=== PATIENT | female | born 1940 | race Caucasian/White ===

== ENCOUNTER 2018-05-29 09:06 | Emergency (ER) | payer MEDICARE, OTHER ==
[~2018-05-29] VITALS: Wt 79.4 kg
[~2018-05-29 09:06] MED LIST: AMERIGEL; ASPIRIN81 M1 PO; KEFLEX500 MG PO; VICODIN 5/500 505 MG PO
[2018-05-29 09:51] LABS: BASO % 0.3 % (0.0-1.0); EOS # 0.2 10*3/uL (0.0-0.4); EOS % 2.3 % (1.0-4.0); HEMATOCRIT 43.1 % (37.0-47.0); HEMOGLOBIN 14.3 g/dl (12.0-16.0); LYMPH # 3.9 10*3/uL (1.3-4.4); LYMPH % 37.2 % (27.0-41.0); MEAN CELL VOLUME 95.6 fl (81.0-99.0); MEAN CORPUSCULAR HGB 31.7 pg (27.0-31.0); MEAN CORPUSCULAR HGB CONC 33.2 g/dl (33.0-37.0); MONO # 0.9 10*3/uL (0.1-1.0); MONO % 8.5 % (3.0-9.0); NEUT # 5.3 10*3/uL (2.3-7.9); NEUT % 50.3 % (47.0-73.0); PLATELET COUNT AUTOMATED 313 10*3/uL (130-400); RED BLOOD COUNT 4.51 10*6/uL (4.10-5.10); RED CELL DISTRI WIDTH 14.4 % (0-14.5); WHITE BLOOD COUNT 10.5 10*3/uL (4.8-10.8)
[2018-05-29 10:58] LABS: ACT PARTIAL THROMBO TIME 21.4 SECONDS (20.8-31.5)
[2018-05-29 11:05] LABS: ALBUMIN 3.9 gm/dl (3.1-4.5); ALKALINE PHOSPHATASE 69 U/L (45-117); BUN 17 mg/dl (7-24); CHLORIDE 100 mmol/L (98-107); LIPASE 138 U/L (73-393); SGPT/ALT 63 U/L (12-78); SODIUM 137 mmol/L (136-145); TOTAL PROTEIN 7.5 gm/dL (6.4-8.2)
[2018-05-29 11:08] LABS: SGOT/AST 34 IU/L (3-35)
[2018-05-29] MEDS ORDERED: NORCO 5-325 TA1 EACH PO (11:59)
[2018-05-29] MEDS ORDERED: ASPIRIN81 M1 PO (12:00)
[2018-05-29] MEDS ORDERED: PROBIOTIC BLEN1 EAC1 PO (12:00)
[2018-05-29] MEDS ORDERED: IRON325 M1 PO (12:00)
== END 2018-05-29 14:41 | disposition short-term general hospital (02) ==
LOC: ED 09:06
PROVIDERS: Physician Assistant
DX: I77.89 Other specified disorders of arteries and arterioles (principal); Z79.82 Long term (current) use of aspirin; Z79.899 Other long term (current) drug therapy; Z86.718 Personal history of other venous thrombosis and embolism

== ENCOUNTER 2018-11-05 19:06 | Emergency (ER) | payer MEDICARE, OTHER ==
[~2018-11-05] VITALS: Ht 160 cm; Wt 77.1 kg
[~2018-11-05 19:06] MED LIST changes: +IRON325 M1 PO; +NORCO 5-325 TA1 EACH PO; +PROBIOTIC BLEN1 EAC1 PO
[2018-11-05 19:38] VITALS: BP 148/64
[2018-11-05] MEDS ORDERED: KEFLEX500 M1 PO (20:51)
== END 2018-11-05 20:47 | disposition home or self-care (01) ==
LOC: ED 19:06
DX: L03.116 Cellulitis of left lower limb (principal); I86.8 Varicose veins of other specified sites; I78.1 Nevus, non-neoplastic

== ENCOUNTER → 2018-11-06 | Outpatient (CLI) | payer MEDICARE, OTHER ==
[~2018-11-06] MED LIST changes: +KEFLEX500 M1 PO
== END ==
LOC: WOUNDCARE 10:25
DX: I87.312 Chronic venous hypertension (idiopathic) with ulcer of left lower extremity (principal); L97.321 Non-pressure chronic ulcer of left ankle limited to breakdown of skin; S81.812A Laceration without foreign body, left lower leg, initial encounter; I73.9 Peripheral vascular disease, unspecified; Z90.49 Acquired absence of other specified parts of digestive tract

== ENCOUNTER → 2018-11-13 | Outpatient (CLI) | payer MEDICARE, OTHER | END | disposition home or self-care (01) | LOC: WOUNDCARE 02:14 | DX: I87.312 Chronic venous hypertension (idiopathic) with ulcer of left lower extremity (principal); L97.321 Non-pressure chronic ulcer of left ankle limited to breakdown of skin; S81.812D Laceration without foreign body, left lower leg, subsequent encounter; I73.9 Peripheral vascular disease, unspecified; X58.XXXD Exposure to other specified factors, subsequent encounter ==

== ENCOUNTER → 2019-02-18 | Outpatient (CLI) | payer MEDICARE, OTHER | END | disposition home or self-care (01) | LOC: WOUNDCARE 01:23 | DX: I87.312 Chronic venous hypertension (idiopathic) with ulcer of left lower extremity (principal); L97.321 Non-pressure chronic ulcer of left ankle limited to breakdown of skin; I73.9 Peripheral vascular disease, unspecified ==

== ENCOUNTER 2020-08-03 13:42 | Emergency (ER) | payer MEDICARE, OTHER ==
[2020-08-03 14:15] VITALS: BP 151/46
== END 2020-08-03 15:26 | disposition home or self-care (01) ==
LOC: ED 13:42
DX: I83.892 Varicose veins of left lower extremity with other complications (principal); Z79.899 Other long term (current) drug therapy; Z79.82 Long term (current) use of aspirin

== ENCOUNTER 2020-10-27 10:21 | Inpatient (IN) | payer MEDICARE, OTHER ==
[~2020-10-27] VITALS: Ht 170.1 cm; Wt 79.1 kg
[2020-10-27 10:38] LABS: HEMATOCRIT 38.3 % (37.0-47.0); MEAN CELL VOLUME 92.5 fl (81.0-99.0); MEAN CORPUSCULAR HGB CONC 31.3 g/dl (33.0-37.0); PLATELET COUNT AUTOMATED 249 10*3/uL (130-400); RED BLOOD COUNT 4.14 10*6/uL (4.10-5.10); RED CELL DISTRI WIDTH 15.2 % (0-14.5); WHITE BLOOD COUNT 9.4 10*3/uL (4.8-10.8)
[2020-10-27 10:39] VITALS: BP 185/70
[2020-10-27 10:47] LABS: ACT PARTIAL THROMBO TIME 22.9 SECONDS (20.0-32.1)
[2020-10-27 10:56] LABS: BASOPHILS 1 % (0-1); PLATELET SUFFICIENCY NORMAL (NORMAL); TOTAL CELLS COUNTED 100 #CELLS
[2020-10-27 10:57] LABS: ALBUMIN 3.9 gm/dl (3.1-4.5); ALKALINE PHOSPHATASE 97 U/L (45-117); BUN 11 mg/dl (7-24); CHLORIDE 102 mmol/L (98-107); CREATININE 0.79 mg/dL (0.55-1.02); POTASSIUM 4.1 mmol/L (3.5-5.1); SGOT/AST 39 IU/L (3-35); SGPT/ALT 39 U/L (12-78); SODIUM 135 mmol/L (136-145); TOTAL PROTEIN 7.3 gm/dL (6.4-8.2)
[2020-10-27 10:58] LABS: TROPONIN I < 0.015 ng/ml (<0.045)
[2020-10-27 10:59] VITALS: BP 144/67
[2020-10-27 13:22] VITALS: BP 150/70
[2020-10-27 15:26] VITALS: BP 123/50
[2020-10-27 16:30] VITALS: BP 127/41
[2020-10-27] MEDS ORDERED: DICLOFENAC SOD100 G1 T (17:05)
[2020-10-27] MEDS ORDERED: HYDROCODONE-AC1 EAC1 PO (17:06)
[2020-10-27 20:00] VITALS: BP 142/49
[2020-10-28] VITALS: BP 130/44
[2020-10-28 08:00] VITALS: BP 134/45
[2020-10-28 09:27] LABS: BILIRUBIN 1+ (Negative); BLOOD Negative (Negative); CLARITY Cloudy (Clear); COLOR Dark Yellow (Yellow); GLUCOSE Negative (Negative); KETONE Trace (Negative); LEUKO ESTERASE Trace (Negative); NITRITE Positive (Negative); PH 5.5 (4.5-8.0); SPECIFIC GRAVITY >= 1.030 (1.001-1.030)
[2020-10-28 09:51] LABS: BACTERIA 3+
[2020-10-28 10:21] LABS: HEMATOCRIT 37.3 % (37.0-47.0); MEAN CELL VOLUME 91.6 fl (81.0-99.0); MEAN CORPUSCULAR HGB 28.5 pg (27.0-31.0); MEAN CORPUSCULAR HGB CONC 31.1 g/dl (33.0-37.0); MEAN PLATELET VOLUME 10.3 fl (9.6-12.3); PLATELET COUNT AUTOMATED 184 10*3/uL (130-400); RED BLOOD COUNT 4.07 10*6/uL (4.10-5.10); RED CELL DISTRI WIDTH 15.4 % (0-14.5); WHITE BLOOD COUNT 10.5 10*3/uL (4.8-10.8)
[2020-10-28 11:01] LABS: BUN 15 mg/dl (7-24); CHLORIDE 103 mmol/L (98-107); CREATININE 0.81 mg/dL (0.55-1.02); POTASSIUM 3.9 mmol/L (3.5-5.1); SODIUM 135 mmol/L (136-145)
[2020-10-28 11:06] LABS: THYROID STIM HORMONE (HS) 0.891 uIU/ml (0.358-4.75)
[2020-10-28 11:29] LABS: PLATELET SUFFICIENCY NORMAL (NORMAL); TOTAL CELLS COUNTED 100 #CELLS
[2020-10-28 12:00] VITALS: BP 119/44
[2020-10-28 16:00] VITALS: BP 121/40
[2020-10-28 20:00] VITALS: BP 123/49
[2020-10-29] VITALS: BP 117/51
[2020-10-29 06:30] LABS: BASO % 0.4 % (0.0-1.0); EOS # 0.1 10*3/uL (0.0-0.4); EOS % 0.7 % (1.0-4.0); LYMPH % 12.1 % (27.0-41.0); MEAN CELL VOLUME 94.2 fl (81.0-99.0); MEAN CORPUSCULAR HGB 29.4 pg (27.0-31.0); MEAN CORPUSCULAR HGB CONC 31.2 g/dl (33.0-37.0); MEAN PLATELET VOLUME 10.6 fl (9.6-12.3); MONO # 0.8 10*3/uL (0.1-1.0); MONO % 9.8 % (3.0-9.0); NEUT # 6.3 10*3/uL (2.3-7.9); NEUT % 76.5 % (47.0-73.0); PLATELET COUNT AUTOMATED 159 10*3/uL (130-400); RED BLOOD COUNT 3.61 10*6/uL (4.10-5.10); RED CELL DISTRI WIDTH 15.4 % (0-14.5); WHITE BLOOD COUNT 8.2 10*3/uL (4.8-10.8)
[2020-10-29 06:33] LABS: BUN 15 mg/dl (7-24); CHLORIDE 101 mmol/L (98-107); POTASSIUM 3.7 mmol/L (3.5-5.1); SODIUM 134 mmol/L (136-145)
[2020-10-29 06:35] LABS: CREATININE 0.69 mg/dL (0.55-1.02)
[2020-10-29 08:00] VITALS: BP 118/70
[2020-10-29 12:00] VITALS: BP 128/62
[2020-10-29 16:00] VITALS: BP 119/48
[2020-10-29 20:00] VITALS: BP 135/51
[2020-10-30] VITALS (8 sets, daily range): BP systolic 92–135; BP diastolic 48–66
[2020-10-30 06:43] LABS: BUN 12 mg/dl (7-24); CHLORIDE 101 mmol/L (98-107); CREATININE 0.57 mg/dL (0.55-1.02); POTASSIUM 3.8 mmol/L (3.5-5.1); SODIUM 135 mmol/L (136-145)
[2020-10-30 06:45] LABS: BASO % 0.2 % (0.0-1.0); EOS % 0.5 % (1.0-4.0); HEMATOCRIT 32.9 % (37.0-47.0); LYMPH % 12.1 % (27.0-41.0); MEAN CELL VOLUME 92.2 fl (81.0-99.0); MEAN CORPUSCULAR HGB 28.9 pg (27.0-31.0); MEAN CORPUSCULAR HGB CONC 31.3 g/dl (33.0-37.0); MEAN PLATELET VOLUME 11.1 fl (9.6-12.3); MONO # 1.2 10*3/uL (0.1-1.0); MONO % 13.7 % (3.0-9.0); NEUT # 6.2 10*3/uL (2.3-7.9); NEUT % 73.1 % (47.0-73.0); PLATELET COUNT AUTOMATED 166 10*3/uL (130-400); RED BLOOD COUNT 3.57 10*6/uL (4.10-5.10); RED CELL DISTRI WIDTH 15.1 % (0-14.5); WHITE BLOOD COUNT 8.5 10*3/uL (4.8-10.8)
[2020-10-31 00:40] VITALS: BP 140/54
[2020-10-31 03:30] VITALS: BP 145/65
[2020-10-31 06:43] LABS: ALBUMIN 2.6 gm/dl (3.1-4.5); ALKALINE PHOSPHATASE 70 U/L (45-117); BUN 10 mg/dl (7-24); CHLORIDE 100 mmol/L (98-107); POTASSIUM 3.8 mmol/L (3.5-5.1); SGOT/AST 24 IU/L (3-35); SGPT/ALT 32 U/L (12-78); SODIUM 134 mmol/L (136-145); TOTAL PROTEIN 5.9 gm/dL (6.4-8.2)
[2020-10-31 06:48] LABS: BASO % 0.1 % (0.0-1.0); EOS % 0.5 % (1.0-4.0); HEMATOCRIT 30.8 % (37.0-47.0); LYMPH # 1.3 10*3/uL (1.3-4.4); LYMPH % 15.1 % (27.0-41.0); MEAN CELL VOLUME 91.9 fl (81.0-99.0); MEAN CORPUSCULAR HGB CONC 31.5 g/dl (33.0-37.0); MONO # 1.3 10*3/uL (0.1-1.0); MONO % 15.6 % (3.0-9.0); NEUT # 5.7 10*3/uL (2.3-7.9); NEUT % 68.3 % (47.0-73.0); PLATELET COUNT AUTOMATED 188 10*3/uL (130-400); RED BLOOD COUNT 3.35 10*6/uL (4.10-5.10); RED CELL DISTRI WIDTH 14.9 % (0-14.5); WHITE BLOOD COUNT 8.3 10*3/uL (4.8-10.8)
[2020-10-31 08:00] VITALS: BP 148/58
[2020-10-31 12:00] VITALS: BP 144/66
[2020-10-31 16:00] VITALS: BP 136/60
[2020-10-31 20:00] VITALS: BP 119/50
[2020-11-01] VITALS: BP 134/58
[2020-11-01 06:42] LABS: BASO % 0.4 % (0.0-1.0); EOS # 0.1 10*3/uL (0.0-0.4); EOS % 1.8 % (1.0-4.0); HEMATOCRIT 36.6 % (37.0-47.0); LYMPH # 1.5 10*3/uL (1.3-4.4); LYMPH % 20.7 % (27.0-41.0); MEAN PLATELET VOLUME 10.9 fl (9.6-12.3); MONO # 1.2 10*3/uL (0.1-1.0); MONO % 17.1 % (3.0-9.0); NEUT # 4.3 10*3/uL (2.3-7.9); NEUT % 59.4 % (47.0-73.0); PLATELET COUNT AUTOMATED 238 10*3/uL (130-400); RED BLOOD COUNT 4.03 10*6/uL (4.10-5.10); RED CELL DISTRI WIDTH 14.8 % (0-14.5); WHITE BLOOD COUNT 7.3 10*3/uL (4.8-10.8)
[2020-11-01 06:43] LABS: MEAN CELL VOLUME 90.8 fl (81.0-99.0)
[2020-11-01 06:52] LABS: ALKALINE PHOSPHATASE 78 U/L (45-117); BUN 13 mg/dl (7-24); CHLORIDE 98 mmol/L (98-107); CREATININE 0.76 mg/dL (0.55-1.02); POTASSIUM 3.4 mmol/L (3.5-5.1); SGOT/AST 23 IU/L (3-35); SGPT/ALT 34 U/L (12-78); SODIUM 132 mmol/L (136-145); TOTAL PROTEIN 7.2 gm/dL (6.4-8.2)
[2020-11-01 08:00] VITALS: BP 135/50
[2020-11-01 08:40] VITALS: BP 120/64
[2020-11-01 12:00] VITALS: BP 142/48
[2020-11-01 16:00] VITALS: BP 138/68
[2020-11-01 20:00] VITALS: BP 161/58
[2020-11-02] VITALS: BP 176/71
[2020-11-02 06:38] LABS: CHLORIDE 99 mmol/L (98-107); POTASSIUM 3.6 mmol/L (3.5-5.1); SGPT/ALT 26 U/L (12-78); SODIUM 134 mmol/L (136-145)
[2020-11-02 06:44] LABS: BASO % 0.1 % (0.0-1.0); EOS # 0.1 10*3/uL (0.0-0.4); EOS % 0.9 % (1.0-4.0); HEMATOCRIT 34.9 % (37.0-47.0); LYMPH # 1.4 10*3/uL (1.3-4.4); LYMPH % 18.1 % (27.0-41.0); MEAN CELL VOLUME 91.4 fl (81.0-99.0); MEAN CORPUSCULAR HGB 28.8 pg (27.0-31.0); MEAN CORPUSCULAR HGB CONC 31.5 g/dl (33.0-37.0); MEAN PLATELET VOLUME 10.9 fl (9.6-12.3); MONO # 1.1 10*3/uL (0.1-1.0); MONO % 14.6 % (3.0-9.0); NEUT # 5.1 10*3/uL (2.3-7.9); NEUT % 65.7 % (47.0-73.0); PLATELET COUNT AUTOMATED 297 10*3/uL (130-400); RED BLOOD COUNT 3.82 10*6/uL (4.10-5.10); RED CELL DISTRI WIDTH 14.9 % (0-14.5); WHITE BLOOD COUNT 7.7 10*3/uL (4.8-10.8)
[2020-11-02 06:45] LABS: ALBUMIN 2.7 gm/dl (3.1-4.5); ALKALINE PHOSPHATASE 70 U/L (45-117); BUN 11 mg/dl (7-24); SGOT/AST 18 IU/L (3-35); TOTAL PROTEIN 6.5 gm/dL (6.4-8.2)
[2020-11-02 08:00] VITALS: BP 154/68
[2020-11-02 12:00] VITALS: BP 156/78
[2020-11-02 16:00] VITALS: BP 146/67
[2020-11-02 20:00] VITALS: BP 120/67
[2020-11-02 20:34] LABS: BUN 12 mg/dl (7-24); CHLORIDE 100 mmol/L (98-107); CREATININE 0.78 mg/dL (0.55-1.02); POTASSIUM 3.4 mmol/L (3.5-5.1); SODIUM 135 mmol/L (136-145); TROPONIN I < 0.015 ng/ml (<0.045)
[2020-11-03] VITALS: BP 141/60
[2020-11-03 06:17] LABS: BASO % 0.4 % (0.0-1.0); EOS # 0.1 10*3/uL (0.0-0.4); EOS % 1.4 % (1.0-4.0); HEMATOCRIT 31.3 % (37.0-47.0); LYMPH # 1.4 10*3/uL (1.3-4.4); LYMPH % 17.4 % (27.0-41.0); MEAN CELL VOLUME 89.2 fl (81.0-99.0); MEAN CORPUSCULAR HGB 28.8 pg (27.0-31.0); MEAN CORPUSCULAR HGB CONC 32.3 g/dl (33.0-37.0); MEAN PLATELET VOLUME 10.5 fl (9.6-12.3); MONO # 1.1 10*3/uL (0.1-1.0); MONO % 13.8 % (3.0-9.0); NEUT # 5.1 10*3/uL (2.3-7.9); PLATELET COUNT AUTOMATED 355 10*3/uL (130-400); RED BLOOD COUNT 3.51 10*6/uL (4.10-5.10); RED CELL DISTRI WIDTH 14.7 % (0-14.5); WHITE BLOOD COUNT 7.8 10*3/uL (4.8-10.8)
[2020-11-03 08:00] VITALS: BP 174/70
[2020-11-03 09:55] VITALS: BP 159/77
[2020-11-03 12:00] VITALS: BP 168/72
[2020-11-03 16:00] VITALS: BP 148/52
[2020-11-03 16:08] LABS: FREE KAPPA LIGHT CHAINS 24.4 mg/L (3.3-19.4); FREE LAMBDA LIGHT CHAINS 19.3 mg/L (5.7-26.3); KAPPA/LAMBDA RATIO 1.26 (0.26-1.65)
[2020-11-03 17:06] LABS: A/G RATIO 0.9 (0.7-1.7); ALBUMIN 3.1 g/dL (2.9-4.4); ALPHA-1-GLOBULIN 0.4 g/dL (0.0-0.4); BETA GLOBULIN 1.1 g/dL (0.7-1.3); GAMMA GLOBULIN 0.9 g/dL (0.4-1.8); GLOBULIN, TOTAL 3.4 g/dL (2.2-3.9); M-SPIKE Not Observed g/dL (Not Observed); TOTAL PROTEIN, SERUM 6.5 g/dL (6.0-8.5)
[2020-11-03 20:00] VITALS: BP 143/69
[2020-11-04] VITALS: BP 145/52
[2020-11-04 08:00] VITALS: BP 157/71
[2020-11-04 09:01] LABS: BASO % 0.4 % (0.0-1.0); EOS # 0.2 10*3/uL (0.0-0.4); EOS % 2.1 % (1.0-4.0); HEMATOCRIT 33.1 % (37.0-47.0); MEAN CELL VOLUME 90.9 fl (81.0-99.0); MEAN CORPUSCULAR HGB 28.8 pg (27.0-31.0); MEAN CORPUSCULAR HGB CONC 31.7 g/dl (33.0-37.0); MEAN PLATELET VOLUME 9.9 fl (9.6-12.3); MONO # 0.7 10*3/uL (0.1-1.0); MONO % 9.5 % (3.0-9.0); NEUT # 5.2 10*3/uL (2.3-7.9); NEUT % 73.4 % (47.0-73.0); PLATELET COUNT AUTOMATED 417 10*3/uL (130-400); RED BLOOD COUNT 3.64 10*6/uL (4.10-5.10); RED CELL DISTRI WIDTH 14.9 % (0-14.5); WHITE BLOOD COUNT 7.1 10*3/uL (4.8-10.8)
[2020-11-04] MEDS ORDERED: XARE20MG PO (09:56)
[2020-11-04] MEDS ORDERED: DOK COLACE100 MG PO (09:56)
[2020-11-04] MEDS ORDERED: CEFDINIR300 MG PO (09:56)
[2020-11-04] MEDS ORDERED: PERCOCET 7.5 MG-325 PO (09:56)
[2020-11-04 12:00] VITALS: BP 125/47
[2020-11-04] MEDS ORDERED: METOPROLOL SUCC25 M2 PO (12:19)
[2020-11-07 14:08] LABS: ALPHA-1-GLOBULIN, URINE 5.3 % (.); ALPHA-2-GLOBULIN, URINE 22.9 % (.); GAMMA GLOBULIN, URINE 17.7 % (.); M-SPIKE % Not Observed % (Not Observed); PROTEIN,TOTAL - URINE RANDOM 19.1 mg/dL (Not Estab.)
== END 2020-11-04 14:51 | disposition home or self-care (01) | DRG 205 ==
LOC: ED 10:21 → EDHOLD 14:46 → 5E 16:12
PROVIDERS: Emergency Medicine; Internal Medicine; Podiatrist Foot & Ankle Surgery; Registered Nurse; Social Worker Clinical; Student in an Organized Health Care Education/Training Program; ADMIT Internal Medicine; ATTEND Internal Medicine
PROC: 4A02XM4 Measurement of Cardiac Total Activity, External Approach (ICD-10-PCS; principal; 2020-11-03)
PROC: 3E073KZ Introduction of Other Diagnostic Substance into Coronary Artery, Percutaneous Approach (ICD-10-PCS; 2020-11-03)
DX: M94.0 Chondrocostal junction syndrome [Tietze] (principal); J96.01 Acute respiratory failure with hypoxia; G93.41 Metabolic encephalopathy; N30.00 Acute cystitis without hematuria; E87.1 Hypo-osmolality and hyponatremia; R78.81 Bacteremia; G62.9 Polyneuropathy, unspecified; R73.9 Hyperglycemia, unspecified; E80.6 Other disorders of bilirubin metabolism; M54.5 Low back pain; S81.802A Unspecified open wound, left lower leg, initial encounter; B96.20 Unspecified Escherichia coli [E. coli] as the cause of diseases classified elsewhere; I83.93 Asymptomatic varicose veins of bilateral lower extremities; M20.42 Other hammer toe(s) (acquired), left foot; M20.41 Other hammer toe(s) (acquired), right foot; I80.3 Phlebitis and thrombophlebitis of lower extremities, unspecified; G89.4 Chronic pain syndrome; I48.91 Unspecified atrial fibrillation; S81.801A Unspecified open wound, right lower leg, initial encounter; X58.XXXA Exposure to other specified factors, initial encounter; Y93.89 Activity, other specified; Y92.89 Other specified places as the place of occurrence of the external cause; Y99.8 Other external cause status; Z79.899 Other long term (current) drug therapy

== ENCOUNTER → 2020-12-02 | Outpatient (CLI) | payer MEDICARE, OTHER ==
[~2020-12-02] MED LIST changes: +CEFDINIR300 MG PO; +DICLOFENAC SOD100 G1 T; +DOK COLACE100 MG PO; +HYDROCODONE-AC1 EAC1 PO; +METOPROLOL SUCC25 M2 PO; +PERCOCET 7.5 MG-325 PO; +XARE20MG PO
[2020-12-02 09:36] LABS: CPK 58 U/L (26-192)
[2020-12-03 02:06] LABS: TOTAL PROTEIN, SERUM 6.7 g/dL (6.0-8.5)
[2020-12-04 15:06] LABS: SJOGREN ANTI-SS-A <0.2 AI (0.0-0.9); SJOREN AB, ANTI-SS-B <0.2 AI (0.0-0.9)
[2020-12-05 16:08] LABS: A/G RATIO 1.2 (0.7-1.7); ALBUMIN 3.6 g/dL (2.9-4.4); ALPHA-1-GLOBULIN 0.3 g/dL (0.0-0.4); ALPHA-2-GLOBULIN 0.9 g/dL (0.4-1.0); GAMMA GLOBULIN 0.9 g/dL (0.4-1.8); GLOBULIN, TOTAL 3.1 g/dL (2.2-3.9); M-SPIKE Comment: g/dL (Not Observed)
[2020-12-05 17:06] LABS: ALDOLASE 5.3 U/L (3.3-10.3)
== END | disposition home or self-care (01) ==
LOC: LAB 08:38
PROVIDERS: ATTEND Psychiatry & Neurology Clinical Neurophysiology
DX: G62.9 Polyneuropathy, unspecified (principal); R73.9 Hyperglycemia, unspecified; M54.5 Low back pain; G89.29 Other chronic pain

== ENCOUNTER 2022-01-22 14:24 | Emergency (ER) | payer MEDICARE, OTHER ==
[~2022-01-22] VITALS: Ht 152.4 cm; Wt 76.2 kg
[2022-01-22] MEDS ORDERED: BUSPAR15 MG PO (15:26)
[2022-01-22 15:49] LABS: BASO % 0.6 % (0.0-1.0); EOS # 0.1 10*3/uL (0.0-0.4); EOS % 2.1 % (1.0-4.0); HEMATOCRIT 32.9 % (37.0-47.0); LYMPH # 1.2 10*3/uL (1.3-4.4); LYMPH % 24.5 % (27.0-41.0); MEAN CELL VOLUME 100.6 fl (81.0-99.0); MEAN CORPUSCULAR HGB 32.7 pg (27.0-31.0); MEAN CORPUSCULAR HGB CONC 32.5 g/dl (33.0-37.0); MEAN PLATELET VOLUME 9.4 fl (9.6-12.3); MONO # 0.4 10*3/uL (0.1-1.0); MONO % 8.8 % (3.0-9.0); NEUT # 3.1 10*3/uL (2.3-7.9); NEUT % 63.8 % (47.0-73.0); PLATELET COUNT AUTOMATED 226 10*3/uL (130-400); RED BLOOD COUNT 3.27 10*6/uL (4.10-5.10); RED CELL DISTRI WIDTH 15.4 % (0-14.5); WHITE BLOOD COUNT 4.8 10*3/uL (4.8-10.8)
[2022-01-22 16:09] LABS: ALKALINE PHOSPHATASE 121 U/L (45-117); BUN 9 mg/dl (7-24); CHLORIDE 106 mmol/L (98-107); CREATININE 0.73 mg/dL (0.55-1.02); SGOT/AST 30 IU/L (3-35); SGPT/ALT 26 U/L (12-78); SODIUM 139 mmol/L (136-145); TOTAL PROTEIN 6.7 gm/dL (6.4-8.2)
[2022-01-22 16:44] VITALS: BP 120/50
[2022-01-22] MEDS ORDERED: CLONIDINE0.2 MG PO (17:51)
== END 2022-01-22 18:05 | disposition home or self-care (01) ==
LOC: ED 14:24
PROVIDERS: Nurse Practitioner Family
DX: I10 Essential (primary) hypertension (principal); Z79.899 Other long term (current) drug therapy

== ENCOUNTER → 2022-02-12 | Outpatient (CLI) | payer MEDICARE, OTHER ==
[~2022-02-12] MED LIST changes: +BUSPAR15 MG PO; +CLONIDINE0.2 MG PO
== END | disposition home or self-care (01) ==
LOC: CT 12:54
PROVIDERS: ATTEND Family Medicine
DX: S23.41XA Sprain of ribs, initial encounter (principal); K76.0 Fatty (change of) liver, not elsewhere classified; K44.9 Diaphragmatic hernia without obstruction or gangrene; I25.10 Atherosclerotic heart disease of native coronary artery without angina pectoris; X58.XXXA Exposure to other specified factors, initial encounter; Y93.89 Activity, other specified; Y92.89 Other specified places as the place of occurrence of the external cause; Y99.8 Other external cause status

== ENCOUNTER 2023-01-16 11:04 | Emergency (ER) | payer MEDICARE, OTHER ==
[~2023-01-16] VITALS: Ht 152.4 cm; Wt 67.1 kg
[~2023-01-16 11:04] MED LIST changes: +'CLONIDINE0.1 MG PO; +FLECAINIDE ACET50 M1 PO; +KEFLEX 500 MG E2 CAP PO; +PANTOPRAZOLE SO20 MG PO
[2023-01-16 12:24] VITALS: BP 148/88
[2023-01-16] MEDS ORDERED: HYDROCODONE-AC1 EAC1 PO (16:37)
== END 2023-01-16 17:26 | disposition home or self-care (01) ==
LOC: ED 11:04
DX: M54.50 Low back pain, unspecified (principal); M79.605 Pain in left leg; I10 Essential (primary) hypertension; Z90.49 Acquired absence of other specified parts of digestive tract; Z98.890 Other specified postprocedural states